=== PATIENT | female | born 1975 | race Caucasian/White ===

== ENCOUNTER 2018-03-17 09:03 | Emergency (ER) | payer BC, MEDICAID ==
[2018-03-17 09:55] LABS: URINE PH (Dip) POC 6.5 (5.0-8.5)
[2018-03-17 09:55] LABS: URINE BLOOD (Dip) POC 3+ (NEGATIVE); URINE GLUCOSE (Dip) POC Negative (NEGATIVE); URINE KETONES (Dip) POC Negative (NEGATIVE); URINE LEUKOCYTE EST (Dip) POC Trace (NEGATIVE); URINE NITRITE (Dip) POC Negative (NEGATIVE); URINE TOTAL PROTEIN POC Trace (NEGATIVE)
[2018-03-17] MEDS: KETOROLAC 30 MG INJ IM (10:07)
== END 2018-03-17 10:58 | disposition home or self-care (01) ==
LOC: FTE 09:03
DX: R51 Headache (principal); E11.9 Type 2 diabetes mellitus without complications
CPT/HCPCS: 81003; 81025; 96372; 99284-25

== ENCOUNTER 2018-04-16 02:02 | Emergency (ER) | payer BC ==
[2018-04-16 03:55] LABS: URINE PH (Dip) POC 6.5 (5.0-8.5)
[2018-04-16 03:55] LABS: URINE BLOOD (Dip) POC 3+ (NEGATIVE); URINE GLUCOSE (Dip) POC Negative (NEGATIVE); URINE KETONES (Dip) POC Negative (NEGATIVE); URINE LEUKOCYTE EST (Dip) POC 1+ (NEGATIVE); URINE NITRITE (Dip) POC Negative (NEGATIVE); URINE TOTAL PROTEIN POC Negative (NEGATIVE)
[2018-04-16] MEDS: KETOROLAC 60 MG INJ IM (04:07)
== END 2018-04-16 04:58 | disposition home or self-care (01) ==
LOC: FTE 02:02
DX: R30.0 Dysuria (principal); R30.9 Painful micturition, unspecified
CPT/HCPCS: 81003; 81025; 96372; 99284-25